=== PATIENT | male | born 1990 | race African-American/Black ===

== ENCOUNTER 2017-01-06 14:16 | Emergency (ER) | payer SELFPAY ==
[~2017-01-06] VITALS: Ht 188 cm; Wt 95.3 kg
--- NOTE | 2017-01-06 15:30 | NUR ---
right foot pain; right foor lac- 15 hours ago; wound care by Clarissa SHERIFF Stri-strep applied
[2017-01-06] MEDS ORDERED: TDAP [DIPH/PERTUSSIS/TET] 0.5 ML VIAL IM ONE ×2 (16:00→16:04)
[2017-01-06 16:16] VITALS: BP 142/75
== END 2017-01-06 16:17 ==
LOC: ER 14:19
DX: S91.311A Laceration without foreign body, right foot, initial encounter (principal); S05.12XA Contusion of eyeball and orbital tissues, left eye, initial encounter; Y04.0XXA Assault by unarmed brawl or fight, initial encounter; Y92.89 Other specified places as the place of occurrence of the external cause; Y93.89 Activity, other specified; Y99.8 Other external cause status
CPT/HCPCS: 73110; 73130; 73630; 90471; 90715; 99284; A4606; Z7610